=== PATIENT | male | born 1980 | race Caucasian/White ===

== ENCOUNTER 2024-10-10 02:45 | Inpatient (IN) | payer MEDICAID, SELFPAY ==
[~2024-10-10] VITALS: Ht 170.2 cm; Wt 87.2 kg
[2024-10-10] VITALS (33 sets, daily range): BP systolic 77–138; BP diastolic 44–76; TEMP 99.3–102.6; O2SAT 91–100
[2024-10-10 03:26] LABS: VENOUS BASE EXCESS 0.1 (-2.0-2.0); VENOUS HCO3 27.1 MMOL/L (23.0-27.0); VENOUS O2 SATURATION 58.2 % (60.0-80.0); VENOUS PARTIAL PRESSURE CO2 52.5 mmHg (38.0-50.0); VENOUS PARTIAL PRESSURE O2 31.7 mmHg (30.0-50.0); VENOUS STANDARD HCO3 23.5 MMOL/L; VENOUS TOTAL CO2 28.7 MMOL/L (24.0-28.0)
[2024-10-10 03:34] LABS: BASO # 0.1 10^3/uL (0.0-0.2); BASO % 0.4 % (0.0-1.0); EOS % 0.1 % (0.0-3.0); HEMATOCRIT 49.5 % (42.0-52.0); HEMOGLOBIN 15.2 g/dl (13.5-17.5); LYMPH # 2.3 10^3/uL (1.5-5.0); LYMPH % 15.3 % (24.0-44.0); MEAN CORPUSCULAR HEMOGLOBIN 30.9 pg (27.0-33.0); MEAN CORPUSCULAR HGB CONC 30.7 g/dl (32.0-36.5); MEAN CORPUSCULAR VOLUME 100.6 fl (80.0-96.0); MONO # 0.8 10^3/uL (0.0-0.8); MONO % 5.6 % (2.0-8.0); NEUTROPHILS # 11.6 10^3/uL (1.5-8.5); NEUTROPHILS % 77.1 % (36.0-66.0); PLATELET COUNT, AUTOMATED 476 10^3/uL (150-450); RED BLOOD COUNT 4.92 10^6/uL (4.30-6.10)
[2024-10-10] MEDS: LORazepam 2 MG/ML 1ML VIAL IV STA (03:37)
[2024-10-10 04:03] LABS: ETHYL ALCOHOL (ETHANOL) < 0.003 % (0.000-0.010)
[2024-10-10 04:04] LABS: CK-MB VALUE MASS < 1.0 NG/ML (<3.6)
[2024-10-10 04:05] LABS: CPK CREATINE PHOSPHOKINASE 69 U/L (46-171); MB/CK RELATIVE INDEX 1.44 (< OR =4); SALICYLATE LEVEL < 3.0 MG/DL (<30)
[2024-10-10 04:06] LABS: ACETONE/KETONE 2.98 MMOL/L (0.02-0.27)
[2024-10-10 04:07] LABS: THYROID STIMULATING HORMONE 1.026 uIU/ML (0.55-4.78)
[2024-10-10] MEDS: NS (Normal Saline) 0.9% 1,000 ML IV ONE (04:10)
[2024-10-10 04:32] LABS: OSMOLALITY SERUM 376 MOSM/KG (275-295)
[2024-10-10 04:42] LABS: ALBUMIN 2.8 G/DL (3.2-5.2); ALKALINE PHOSPHATASE 176 U/L (40-129); ALT/SGPT 32 U/L (7.0-40); AST/SGOT 15 U/L (<34); BILIRUBIN,DIRECT 0.1 MG/DL (<0.4); BILIRUBIN,TOTAL 0.5 MG/DL (0.3-1.2); BLOOD UREA NITROGEN 56 MG/DL (9-23); CALCIUM LEVEL 11.1 MG/DL (8.5-10.1); CARBON DIOXIDE LEVEL 28 MMOL/L (20-31); CHLORIDE LEVEL 99 MMOL/L (98-107); GLOMERULAR FILTRATION RATE 41.6 (>60); GLUCOSE, FASTING 849 MG/DL (60-100); POTASSIUM SERUM 4.8 MMOL/L (3.5-5.1); SODIUM LEVEL 142 MMOL/L (136-145); TOTAL PROTEIN 7.6 G/DL (5.7-8.2)
[2024-10-10] MEDS ORDERED: INSULIN IV RATE CHANGE DOCUMENTATION ML/HR XX SCH (04:50)
[2024-10-10 05:21] LABS: AMPHETAMINES LEVEL URINE NEGATIVE (NEGATIVE); BARBITURATES URINE NEGATIVE (NEGATIVE); BENZODIAZEPINES URINE NEGATIVE (NEGATIVE); CANNABINOIDS URINE NEGATIVE (NEGATIVE); COCAINE METABOLITE URINE NEGATIVE (NEGATIVE); METHADONE URINE NEGATIVE (NEGATIVE); OPIATES URINE NEGATIVE (NEGATIVE); PHENCYCLIDINE URINE NEGATIVE (NEGATIVE)
[2024-10-10] MEDS: HumuLIN R (REGULAR) INSULIN (NovoLIN R) **100U/ML** PER UNIT IV ONE (05:22)
[2024-10-10] MEDS: INSULIN REGULAR IN 0.9 % NACL 100 UNIT in IV 1 EA IV SCH (05:25)
[2024-10-10 05:37] LABS: HEMOGLOBIN A1c > 14.0 % (4.0-6.0)
[2024-10-10] MEDS ORDERED: MED REC CURRENTLY UNOBTAINABLE XX SCH (05:45)
[2024-10-10] MEDS ORDERED: MIDAZOLAM INJ 2MG/2ML VIAL IV PRN (06:15)
[2024-10-10 06:42] LABS: ABG BASE EXCESS 1.7 (-2.0-2.0); ABG HCO3 26.3 MMOL/L (22.0-26.0); ABG O2 SATURATION 98.3 % (95.0-99.0); ABG PARTIAL PRESSURE CO2 41.5 mmHg (35.0-45.0); ABG PARTIAL PRESSURE O2 128.8 mmHg (75.0-100.0); ABG TOTAL CO2 27.6 MMOL/L (22.0-29.0)
[2024-10-10 06:48] LABS: VENOUS BASE EXCESS 2.3 (-2.0-2.0); VENOUS HCO3 28.5 MMOL/L (23.0-27.0); VENOUS O2 SATURATION 92.7 % (60.0-80.0); VENOUS PARTIAL PRESSURE O2 67.2 mmHg (30.0-50.0); VENOUS PH 7.374 UNITS (7.330-7.430); VENOUS STANDARD HCO3 26.4 MMOL/L; VENOUS TOTAL CO2 30.1 MMOL/L (24.0-28.0)
[2024-10-10 06:56] LABS: HEMATOCRIT 44.5 % (42.0-52.0); HEMOGLOBIN 14.3 g/dl (13.5-17.5); MEAN CORPUSCULAR HEMOGLOBIN 31.1 pg (27.0-33.0); MEAN CORPUSCULAR HGB CONC 32.1 g/dl (32.0-36.5); MEAN CORPUSCULAR VOLUME 96.7 fl (80.0-96.0); PLATELET COUNT, AUTOMATED 481 10^3/uL (150-450); WHITE BLOOD COUNT 17.1 10^3/uL (4.0-10.0)
[2024-10-10] MEDS: NS (Normal Saline) 0.9% 1,000 ML IV SCH (07:07)
[2024-10-10 07:18] LABS: ACETONE/KETONE 1.3 MMOL/L (0.02-0.27)
[2024-10-10 07:33] LABS: CREATININE FOR GFR 1.61 MG/DL (0.70-1.30); GLOMERULAR FILTRATION RATE 50.4 (>60); POTASSIUM SERUM 3.8 MMOL/L (3.5-5.1)
[2024-10-10 07:37] LABS: ALBUMIN 2.5 G/DL (3.2-5.2); BILIRUBIN,TOTAL 0.4 MG/DL (0.3-1.2); CREATININE FOR GFR 1.53 MG/DL (0.70-1.30); GLOMERULAR FILTRATION RATE 53.4 (>60); MAGNESIUM LEVEL 3.5 MG/DL (1.8-2.4); PHOSPHORUS LEVEL 2.7 MG/DL (2.5-4.9); POTASSIUM SERUM 4.8 MMOL/L (3.5-5.1); TOTAL PROTEIN 7.2 G/DL (5.7-8.2)
[2024-10-10 07:51] LABS: VENOUS BASE EXCESS 4.8 (-2.0-2.0); VENOUS PH 7.367 UNITS (7.330-7.430); VENOUS STANDARD HCO3 28.7 MMOL/L; VENOUS TOTAL CO2 33.7 MMOL/L (24.0-28.0)
[2024-10-10] MEDS ORDERED: INSULIN REGULAR IN 0.9 % NACL 100 UNIT in IV 1 EA IV SCH (07:55)
[2024-10-10] MEDS ORDERED: D5W/0.45% SODIUM CHLORIDE 1,000 ML IV SCH (07:55)
[2024-10-10] MEDS: INSULIN IV RATE CHANGE DOCUMENTATION ML/HR XX SCH (08:22)
[2024-10-10 08:34] LABS: CALCIUM LEVEL 11.3 MG/DL (8.5-10.1); CREATININE FOR GFR 1.57 MG/DL (0.70-1.30); GLOMERULAR FILTRATION RATE 51.8 (>60); POTASSIUM SERUM 4.1 MMOL/L (3.5-5.1)
[2024-10-10] MEDS ORDERED: ENOXAPARIN 30MG/0.3ML SYRINGE (J1650 PER 10MG) SC SCH (09:00)
[2024-10-10] MEDS: D5W/0.45% SODIUM CHLORIDE 1,000 ML IV ONE (09:13)
[2024-10-10] MEDS: ACETAMINOPHEN *IV* 1,000 MG in IV 1 EA IV ONE (09:14)
[2024-10-10] MEDS: PANTOPRAZOLE 40MG VIAL IV SCH (09:14)
[2024-10-10] MEDS: KCL 40MEQ IN D5/0.45NS 1000ML 1,000 ML IV SCH (09:15)
[2024-10-10] MEDS ORDERED: dexmedeTOMIDine (4MCG/ML)200MCG/50ML BTL (PRECEDEX) As Ordered ONE (10:00)
[2024-10-10] MEDS: dexmedeTOMidine 200 MCG in IV 1 EA IV SCH (10:00)
[2024-10-10] MEDS: DOXYCYCLINE HYCLATE 100 MG in DEXTROSE 5% (D5W) MINI-BAG PLU 100 ML IV SCH (10:59)
[2024-10-10] MEDS: ENOXAPARIN 40MG/0.4ML SYRINGE (J1650 PER 10MG) SC SCH (11:00)
[2024-10-10 13:36] LABS: ALBUMIN 2.2 G/DL (3.2-5.2); BILIRUBIN,TOTAL 0.4 MG/DL (0.3-1.2); CALCIUM LEVEL 10.3 MG/DL (8.5-10.1); CREATININE FOR GFR 1.49 MG/DL (0.70-1.30); GLOMERULAR FILTRATION RATE 55.1 (>60); PHOSPHORUS LEVEL 4.1 MG/DL (2.5-4.9); POTASSIUM SERUM 4.5 MMOL/L (3.5-5.1); TOTAL PROTEIN 6.3 G/DL (5.7-8.2)
[2024-10-10] MEDS: ACETAMINOPHEN *IV* 1,000 MG in IV 1 EA IV PRN (14:00)
[2024-10-10] MEDS ORDERED: GLUCAGON INJ 1MG VIAL SC PRN (14:20)
[2024-10-10] MEDS ORDERED: DEXTROSE 50% 50ML SYRINGE IV PRN (14:20)
[2024-10-10] MEDS ORDERED: GLUCOSE 4 GM CHEW PO PRN (14:20)
[2024-10-10] MEDS ORDERED: VANCOMYCIN HCL 1,150 MG in IV FLUID PLACE HOLDER 1 EA IV SCH (14:20)
[2024-10-10] MEDS: cefTRIAXone SOD 2 GM in DEXTROSE 5% (D5W) ADV/MINI-BAG 50 ML IV SCH (14:49)
[2024-10-10] MEDS: D5W 1,000 ML IV SCH ×2 (14:50→23:35)
[2024-10-10] MEDS: VANCOMYCIN 1,000 MG/200 ML IV BAG *LOAD IV ONE (15:17)
[2024-10-10] MEDS: LEVEMIR (INSULIN DETEMIR) 1 UNITS/0.01ML SC SCH ×2 (15:17→20:52)
[2024-10-10] MEDS ORDERED: fentaNYL 100 MCG/2 ML INJECTION As Ordered ONE (15:50)
[2024-10-10] MEDS: MIDAZOLAM INJ 2MG/2ML VIAL IV STA (15:53)
[2024-10-10] MEDS: fentaNYL 100 MCG/2 ML INJECTION IV STA ×2 (15:53→16:00)
[2024-10-10] MEDS: D5/0.45%NACL 1000ML IV ONE (16:00)
[2024-10-10] MEDS: dexAMETHasone 20MG/5ML VIAL IV SCH (16:08)
[2024-10-10] MEDS: propofoL 200 MG/20 ML VIAL IV ONE (16:32)
[2024-10-10 16:56] LABS: COLOR, CSF PINK (COLORLESS); CSF TUBE# CELL CNT TUBE 1
[2024-10-10 16:57] LABS: APPEARANCE, CSF HAZY (CLEAR)
[2024-10-10 16:58] LABS: APPEARANCE, CSF CLEAR (CLEAR); COLOR, CSF COLORLESS (COLORLESS); CSF TUBE# CELL CNT TUBE 4
[2024-10-10] MEDS ORDERED: OMEP-173 PO (17:01)
[2024-10-10 17:02] LABS: CSF TUBE# TP TUBE 2; TOTAL PROTEIN,CSF 123.5 MG/DL (15-45)
[2024-10-10 17:04] LABS: CSF TUBE# GLU TUBE 2
[2024-10-10] MEDS ORDERED: HOME MED LIST COMPLETE! XX SCH (17:05)
[2024-10-10 17:24] LABS: ALBUMIN 1.9 G/DL (3.2-5.2); BILIRUBIN,TOTAL 0.4 MG/DL (0.3-1.2); CALCIUM LEVEL 9.7 MG/DL (8.5-10.1); CREATININE FOR GFR 1.55 MG/DL (0.70-1.30); GLOMERULAR FILTRATION RATE 52.6 (>60); PHOSPHORUS LEVEL 3.6 MG/DL (2.5-4.9); POTASSIUM SERUM 4.5 MMOL/L (3.5-5.1); TOTAL PROTEIN 5.4 G/DL (5.7-8.2)
[2024-10-10] MEDS: NS IV SCH (17:37)
[2024-10-10] MEDS: ACYCLOVIR IV SCH (17:37)
[2024-10-10] MEDS: INSULIN LISPRO (NovoLOG) PER UNIT SC SCH (17:37)
[2024-10-10 19:40] LABS: BILIRUBIN,TOTAL 0.4 MG/DL (0.3-1.2); CALCIUM LEVEL 9.7 MG/DL (8.5-10.1); CREATININE FOR GFR 1.41 MG/DL (0.70-1.30); GLOMERULAR FILTRATION RATE 58.7 (>60); PHOSPHORUS LEVEL 2.2 MG/DL (2.5-4.9); POTASSIUM SERUM 4.5 MMOL/L (3.5-5.1); TOTAL PROTEIN 5.9 G/DL (5.7-8.2)
[2024-10-10] MEDS ORDERED: VANCOMYCIN 1,000MG/200 ML IV BAG IV SCH (20:00)
[2024-10-10] MEDS: VANCOMYCIN 750MG/150 ML IV BAG IV SCH (20:37)
[2024-10-11] VITALS (38 sets, daily range): BP systolic 96–155; BP diastolic 55–96; TEMP 98.2–101.8; O2SAT 95–99
[2024-10-11 00:17] LABS: BLOOD UREA NITROGEN 32 MG/DL (9-23); CALCIUM LEVEL 10.4 MG/DL (8.5-10.1); CARBON DIOXIDE LEVEL 26 MMOL/L (20-31); CHLORIDE LEVEL 118 MMOL/L (98-107); GLOMERULAR FILTRATION RATE > 60.0 (>60); GLUCOSE, FASTING 355 MG/DL (60-100); POTASSIUM SERUM 4.5 MMOL/L (3.5-5.1); SODIUM LEVEL 153 MMOL/L (136-145)
[2024-10-11] MEDS: D5W 1,000 ML IV ONE (01:25)
[2024-10-11] MEDS: cefTRIAXone SOD 2 GM in DEXTROSE 5% (D5W) ADV/MINI-BAG 50 ML IV SCH (03:46)
[2024-10-11 04:54] LABS: BASO % 0.2 % (0.0-1.0); HEMATOCRIT 39.1 % (42.0-52.0); LYMPH # 2.7 10^3/uL (1.5-5.0); LYMPH % 13.9 % (24.0-44.0); MEAN CORPUSCULAR HEMOGLOBIN 31.1 pg (27.0-33.0); MEAN CORPUSCULAR HGB CONC 31.2 g/dl (32.0-36.5); MEAN CORPUSCULAR VOLUME 99.7 fl (80.0-96.0); MONO # 0.4 10^3/uL (0.0-0.8); MONO % 2.2 % (2.0-8.0); NEUTROPHILS # 16.1 10^3/uL (1.5-8.5); NEUTROPHILS % 82.8 % (36.0-66.0); PLATELET COUNT, AUTOMATED 385 10^3/uL (150-450); RED BLOOD COUNT 3.92 10^6/uL (4.30-6.10); WHITE BLOOD COUNT 19.5 10^3/uL (4.0-10.0)
[2024-10-11 04:55] LABS: HEMOGLOBIN 12.2 g/dl (13.5-17.5)
[2024-10-11] MEDS ORDERED: MORPHINE 2 MG/ML 1ML VIAL IV PRN (05:50)
[2024-10-11 05:51] LABS: ALKALINE PHOSPHATASE 120 U/L (40-129); ALT/SGPT 20 U/L (7.0-40); AST/SGOT 21 U/L (<34); BILIRUBIN,TOTAL 0.5 MG/DL (0.3-1.2); BLOOD UREA NITROGEN 28 MG/DL (9-23); CARBON DIOXIDE LEVEL 25 MMOL/L (20-31); CHLORIDE LEVEL 116 MMOL/L (98-107); CREATININE FOR GFR 1.04 MG/DL (0.70-1.30); GLOMERULAR FILTRATION RATE > 60.0 (>60); GLUCOSE, FASTING 415 MG/DL (60-100); MAGNESIUM LEVEL 2.2 MG/DL (1.8-2.4); PHOSPHORUS LEVEL 2.1 MG/DL (2.5-4.9); POTASSIUM SERUM 4.5 MMOL/L (3.5-5.1); SODIUM LEVEL 146 MMOL/L (136-145); TOTAL PROTEIN 5.9 G/DL (5.7-8.2)
[2024-10-11] MEDS: D5W 1,000 ML IV SCH (07:45)
[2024-10-11] MEDS: LEVEMIR (INSULIN DETEMIR) 1 UNITS/0.01ML SC SCH (09:00)
[2024-10-11] MEDS: POTASSIUM PHOSPHATE INJ 30 MMOL in D5W 500 ML IV ONE ×2 (10:44→18:10)
[2024-10-11] MEDS: CEFTAROLINE FOSAMIL 600 MG in DEXTROSE 5% (D5W) ADV/MINI-BAG 50 ML IV SCH (14:14)
[2024-10-11] MEDS ORDERED: ACYCLOVIR IV SCH (16:20)
[2024-10-11] MEDS ORDERED: NS IV SCH (16:20)
[2024-10-11] MEDS: INSULIN LISPRO (NovoLOG) PER UNIT SC SCH ×2 (17:11→21:06)
[2024-10-11] MEDS: CALCIUM CARBONATE 500 MG CHEW U/D PO PRN (22:06)
[2024-10-12] VITALS (15 sets, daily range): BP systolic 114–137; BP diastolic 56–83; TEMP 98.4–100; O2SAT 93–99
[2024-10-12 04:25] LABS: BASO % 0.1 % (0.0-1.0); EOS % 0.1 % (0.0-3.0); HEMATOCRIT 36.8 % (42.0-52.0); HEMOGLOBIN 11.5 g/dl (13.5-17.5); LYMPH # 3.7 10^3/uL (1.5-5.0); LYMPH % 22.5 % (24.0-44.0); MEAN CORPUSCULAR HEMOGLOBIN 30.3 pg (27.0-33.0); MEAN CORPUSCULAR HGB CONC 31.3 g/dl (32.0-36.5); MEAN CORPUSCULAR VOLUME 97.1 fl (80.0-96.0); MONO # 0.5 10^3/uL (0.0-0.8); MONO % 3.1 % (2.0-8.0); NEUTROPHILS # 12.1 10^3/uL (1.5-8.5); NEUTROPHILS % 73.4 % (36.0-66.0); PLATELET COUNT, AUTOMATED 327 10^3/uL (150-450); RED BLOOD COUNT 3.79 10^6/uL (4.30-6.10); WHITE BLOOD COUNT 16.5 10^3/uL (4.0-10.0)
[2024-10-12 05:03] LABS: ALBUMIN 1.8 G/DL (3.2-5.2); ALKALINE PHOSPHATASE 108 U/L (40-129); ALT/SGPT 20 U/L (7.0-40); AST/SGOT 18 U/L (<34); BILIRUBIN,TOTAL 0.7 MG/DL (0.3-1.2); BLOOD UREA NITROGEN 27 MG/DL (9-23); CALCIUM LEVEL 9.6 MG/DL (8.5-10.1); CARBON DIOXIDE LEVEL 25 MMOL/L (20-31); CHLORIDE LEVEL 109 MMOL/L (98-107); CREATININE FOR GFR 0.98 MG/DL (0.70-1.30); GLOMERULAR FILTRATION RATE > 60.0 (>60); GLUCOSE, FASTING 380 MG/DL (60-100); MAGNESIUM LEVEL 1.7 MG/DL (1.8-2.4); PHOSPHORUS LEVEL 3.5 MG/DL (2.5-4.9); POTASSIUM SERUM 4.3 MMOL/L (3.5-5.1); SODIUM LEVEL 139 MMOL/L (136-145); TOTAL PROTEIN 5.4 G/DL (5.7-8.2)
[2024-10-12] MEDS: MAG SULF 1GM/100ML (MAG RUN) 1 GM in IV 1 EA IV STA (08:41)
[2024-10-12] MEDS ORDERED: ISOVUE-370 76% 100ML VIAL As Ordered ONE (15:46)
[2024-10-12 16:23] LABS: HEPATITIS B SURFACE ANTIBODY NEGATIVE (POSITIVE)
[2024-10-12 16:36] LABS: HEPATITIS B SURFACE ANTIGEN NEGATIVE (NEGATIVE)
[2024-10-12 16:49] LABS: HIV 1&2 SCREEN NEGATIVE (NEGATIVE)
[2024-10-12 16:56] LABS: HEPATITIS C VIRUS ABY INDEX < 0.02 INDEX (<0.8)
[2024-10-12] MEDS: INSULIN LISPRO (NovoLOG) PER UNIT SC SCH (17:30)
[2024-10-12] MEDS ORDERED: cefTRIAXone SOD 2 GM in DEXTROSE 5% (D5W) ADV/MINI-BAG 50 ML IV SCH (18:00)
[2024-10-12] MEDS: cefTRIAXone SOD 2 GM in NS MINI-BAG PLUS 50 ML IV SCH (18:14)
[2024-10-12] MEDS: LEVEMIR (INSULIN DETEMIR) 1 UNITS/0.01ML SC SCH (20:19)
[2024-10-12] MEDS ORDERED: DOXYCYCLINE HYCLATE IV SCH (22:00)
[2024-10-12] MEDS ORDERED: SODIUM CHLORIDE 0.9% IV SCH (22:00)
[2024-10-13 00:09] VITALS: BP 102/58; TEMP 97.3; O2SAT 96
[2024-10-13 04:24] VITALS: BP 105/59; TEMP 98.1; O2SAT 96
[2024-10-13 05:10] LABS: HEMATOCRIT 36.3 % (42.0-52.0); HEMOGLOBIN 11.7 g/dl (13.5-17.5); MEAN CORPUSCULAR HGB CONC 32.2 g/dl (32.0-36.5); PLATELET COUNT, AUTOMATED 290 10^3/uL (150-450); RED BLOOD COUNT 3.78 10^6/uL (4.30-6.10); WHITE BLOOD COUNT 12.5 10^3/uL (4.0-10.0)
[2024-10-13 05:37] LABS: ALBUMIN 1.8 G/DL (3.2-5.2); ALKALINE PHOSPHATASE 98 U/L (40-129); ALT/SGPT 23 U/L (7.0-40); AST/SGOT 22 U/L (<34); BILIRUBIN,TOTAL 0.4 MG/DL (0.3-1.2); BLOOD UREA NITROGEN 24 MG/DL (9-23); CALCIUM LEVEL 9.4 MG/DL (8.5-10.1); CARBON DIOXIDE LEVEL 26 MMOL/L (20-31); CHLORIDE LEVEL 110 MMOL/L (98-107); CREATININE FOR GFR 0.95 MG/DL (0.70-1.30); GLOMERULAR FILTRATION RATE > 60.0 (>60); GLUCOSE, FASTING 312 MG/DL (60-100); MAGNESIUM LEVEL 1.9 MG/DL (1.8-2.4); PHOSPHORUS LEVEL 3.5 MG/DL (2.5-4.9); POTASSIUM SERUM 4.1 MMOL/L (3.5-5.1); SODIUM LEVEL 143 MMOL/L (136-145); TOTAL PROTEIN 5.4 G/DL (5.7-8.2)
[2024-10-13 05:38] LABS: ATYPICAL LYMPH 2 % (0-5); LYMPHOCYTES 40 % (16-44); MONOCYTES 5 % (0-5); NEUTROPHILS 53 % (28-66)
[2024-10-13 05:39] LABS: PLATELET ESTIMATE NORMAL (NORMAL)
[2024-10-13 08:00] VITALS: BP 132/84; TEMP 98.8; O2SAT 95
[2024-10-13 12:00] VITALS: BP 132/81; TEMP 98; O2SAT 97
[2024-10-13 16:00] VITALS: BP 120/70; TEMP 97.7; O2SAT 93
[2024-10-13] MEDS: cefTRIAXone SOD 2 GM in DEXTROSE 5% (D5W) ADV/MINI-BAG 50 ML IV SCH (17:10)
[2024-10-13 20:47] VITALS: BP 132/68; TEMP 98; O2SAT 95
[2024-10-14 01:13] VITALS: BP 114/55; TEMP 97.8; O2SAT 97
[2024-10-14 04:08] VITALS: BP 117/69; TEMP 98.1; O2SAT 97
[2024-10-14 07:43] VITALS: BP 132/81; TEMP 98.6; O2SAT 100
[2024-10-14] MEDS: LEVEMIR (INSULIN DETEMIR) 1 UNITS/0.01ML SC SCH (08:32)
[2024-10-14 12:00] VITALS: BP 135/80; TEMP 98.7; O2SAT 100
[2024-10-14] MEDS: INSULIN LISPRO (NovoLOG) PER UNIT SC SCH ×4 (12:53→17:56)
[2024-10-14 15:47] VITALS: BP 121/69; TEMP 98; O2SAT 100
[2024-10-14 18:08] LABS: BASO # 0.1 10^3/uL (0.0-0.2); BASO % 0.4 % (0.0-1.0); EOS # 0.2 10^3/uL (0.0-0.5); EOS % 0.8 % (0.0-3.0); HEMATOCRIT 40.4 % (42.0-52.0); HEMOGLOBIN 13.3 g/dl (13.5-17.5); LYMPH # 5.4 10^3/uL (1.5-5.0); LYMPH % 27.8 % (24.0-44.0); MEAN CORPUSCULAR HEMOGLOBIN 31.4 pg (27.0-33.0); MEAN CORPUSCULAR HGB CONC 32.9 g/dl (32.0-36.5); MEAN CORPUSCULAR VOLUME 95.5 fl (80.0-96.0); MONO # 0.6 10^3/uL (0.0-0.8); MONO % 3.3 % (2.0-8.0); NEUTROPHILS # 12.5 10^3/uL (1.5-8.5); NEUTROPHILS % 64.5 % (36.0-66.0); PLATELET COUNT, AUTOMATED 392 10^3/uL (150-450); RED BLOOD COUNT 4.23 10^6/uL (4.30-6.10); WHITE BLOOD COUNT 19.4 10^3/uL (4.0-10.0)
[2024-10-14 18:37] LABS: BLOOD UREA NITROGEN 18 MG/DL (9-23); CALCIUM LEVEL 9.4 MG/DL (8.5-10.1); CARBON DIOXIDE LEVEL 26 MMOL/L (20-31); CHLORIDE LEVEL 108 MMOL/L (98-107); CREATININE FOR GFR 0.86 MG/DL (0.70-1.30); GLOMERULAR FILTRATION RATE > 60.0 (>60); GLUCOSE, FASTING 178 MG/DL (60-100); POTASSIUM SERUM 3.9 MMOL/L (3.5-5.1); SODIUM LEVEL 141 MMOL/L (136-145)
[2024-10-14 19:43] VITALS: BP 149/80; TEMP 97.6; O2SAT 98
[2024-10-15 00:16] VITALS: BP 132/75; TEMP 97.4; O2SAT 96
[2024-10-15] MEDS: ACETAMINOPHEN 325 MG TAB PO ONE (05:50)
[2024-10-15 08:00] VITALS: BP 134/70; TEMP 97.6; O2SAT 96
[2024-10-15] MEDS: INSULIN LISPRO (NovoLOG) PER UNIT SC SCH ×2 (08:24→17:59)
[2024-10-15] MEDS ORDERED: LANTINJ4 SC (15:53)
[2024-10-15] MEDS ORDERED: LANC30MI XX (15:56)
[2024-10-15] MEDS ORDERED: GLUC1TES2 XX (15:56)
[2024-10-15] MEDS ORDERED: PEN-308 SC (15:56)
[2024-10-15] MEDS ORDERED: HUMA100I5 SC (15:56)
[2024-10-15] MEDS ORDERED: ALCOPAD25 TOP (15:56)
[2024-10-15] MEDS ORDERED: BLOOKIT21 XX (15:56)
[2024-10-15 19:48] VITALS: BP 137/94; TEMP 97.9; O2SAT 99
[2024-10-16 05:04] VITALS: BP 136/84; TEMP 97.5; O2SAT 98
[2024-10-16 07:55] VITALS: BP 138/75; TEMP 98.5; O2SAT 98
[2024-10-16] MEDS: PANTOPRAZOLE 40MG TAB (PROTONIX) PO SCH (08:23)
[2024-10-16 12:35] VITALS: BP 130/70; TEMP 98; O2SAT 97
[2024-10-16 14:40] VITALS: BP 132/75; TEMP 97.9; O2SAT 98
[2024-10-16 17:04] LABS: C REACTIVE PROTEIN QUANTITATIV 1.61 MG/DL (<1.0)
== END 2024-10-16 18:03 | disposition home or self-care (01) | DRG 420 ==
LOC: M ED 02:45 → M ED INP 06:14 → M ICU 08:05 → M PCU 10-14 06:20
PROVIDERS: ADMIT Student in an Organized Health Care Education/Training Program; ATTEND Internal Medicine Nephrology
PROC: 009U3ZX Drainage of Spinal Canal, Percutaneous Approach, Diagnostic (ICD-10-PCS; 2024-10-10)
PROC: B246ZZZ Ultrasonography of Right and Left Heart (ICD-10-PCS; principal; 2024-10-11)
DX: E11.00 Type 2 diabetes mellitus with hyperosmolarity without nonketotic hyperglycemic-hyperosmolar coma (NKHHC) (principal); G93.41 Metabolic encephalopathy; G03.9 Meningitis, unspecified; N17.9 Acute kidney failure, unspecified; E87.0 Hyperosmolality and hypernatremia; F05 Delirium due to known physiological condition; E87.20 Acidosis, unspecified; E83.52 Hypercalcemia; E83.39 Other disorders of phosphorus metabolism; Z56.0 Unemployment, unspecified; R21 Rash and other nonspecific skin eruption

== ENCOUNTER → 2025-04-11 | Outpatient (CLI) | payer OTHER ==
[~2025-04-11] MED LIST: ALCOPAD25 TOP; BLOOKIT21 XX; GLUC1TES2 XX; HUMA100I5 SC; LANC30MI XX; LANTINJ4 SC; OMEP-173 PO; PEN-308 SC
== END ==
LOC: M OUTALCOH 13:00
PROVIDERS: ATTEND Psychiatry & Neurology Psychiatry
DX: F15.20 Other stimulant dependence, uncomplicated (principal); F17.200 Nicotine dependence, unspecified, uncomplicated

== ENCOUNTER 2025-06-04 16:00 | Outpatient (RCR) | payer OTHER | END 2025-06-07 | LOC: M OUTALCOH 16:00 | PROVIDERS: ATTEND Psychiatry & Neurology Psychiatry | DX: F15.20 Other stimulant dependence, uncomplicated (principal); F17.200 Nicotine dependence, unspecified, uncomplicated ==

== ENCOUNTER 2025-07-04 08:57 | Outpatient (RCR) | payer OTHER | END 2025-07-08 | LOC: M OUTALCOH 08:57 | PROVIDERS: ATTEND Psychiatry & Neurology Psychiatry | DX: F15.20 Other stimulant dependence, uncomplicated (principal); F17.200 Nicotine dependence, unspecified, uncomplicated ==

== ENCOUNTER 2025-08-06 16:00 | Outpatient (RCR) | payer OTHER | END 2025-08-07 | LOC: M OUTALCOH 16:00 | PROVIDERS: ATTEND Psychiatry & Neurology Psychiatry | DX: F15.20 Other stimulant dependence, uncomplicated (principal); F17.200 Nicotine dependence, unspecified, uncomplicated ==

== ENCOUNTER 2025-09-03 16:00 | Outpatient (RCR) | payer OTHER | END 2025-09-07 | LOC: M OUTALCOH 16:00 | PROVIDERS: ATTEND Psychiatry & Neurology Psychiatry | DX: F15.20 Other stimulant dependence, uncomplicated (principal); F17.200 Nicotine dependence, unspecified, uncomplicated ==

== ENCOUNTER 2025-11-06 15:00 | Outpatient (RCR) | payer OTHER | END 2025-11-07 | LOC: M OUTALCOH 15:00 | PROVIDERS: ATTEND Psychiatry & Neurology Psychiatry | DX: F15.20 Other stimulant dependence, uncomplicated (principal); F17.200 Nicotine dependence, unspecified, uncomplicated ==